=== PATIENT | male | born 1980 | race Caucasian/White ===

== ENCOUNTER 2019-02-23 05:38 | Day surgery (SDC) | payer OTHER ==
[2019-02-23] MEDS ORDERED: NEOMYC/POLYMYX/BACIT 30 GM OINT (06:53)
[2019-02-23] MEDS ORDERED: ROPIVACAINE 0.5 % 30 ML VIAL ×2 (06:53→07:23)
[2019-02-23] MEDS ORDERED: SUGAMMADEX SODIUM 200 MG/2 ML VIAL IV (07:00)
[2019-02-23] MEDS ORDERED: FENTAnyl 50 MCG/ML VIAL ×3 (07:19→09:17)
[2019-02-23] MEDS ORDERED: MIDAZOLAM 1 MG/ML 2 ML INJ (07:19)
[2019-02-23] MEDS ORDERED: CEFAZOLIN 1 GM INJ (07:19)
[2019-02-23] MEDS ORDERED: ONDANSETRON 4 MG INJ (07:19)
[2019-02-23] MEDS ORDERED: PROPOFOL 20 ML (07:19)
[2019-02-23] MEDS ORDERED: ROCURONIUM 50 MG INJ ×3 (07:19→10:01)
[2019-02-23] MEDS ORDERED: NEOSTIGMINE 3 MG/3 ML SYRINGE (07:19)
[2019-02-23] MEDS ORDERED: GLYCOPYRROLATE 0.4 MG INJ (07:19)
[2019-02-23] MEDS ORDERED: DEXAMETHASONE 4 MG/ML 5 ML INJ (07:20)
[2019-02-23] MEDS ORDERED: EPHEDrine SULFATE 50 MG/5 ML SYG IV (07:30)
[2019-02-23] MEDS ORDERED: ALBUTEROL 0.083% (NEB) 2.5 MG/3 ML AMP HHN (07:30)
[2019-02-23] MEDS ORDERED: IPRATROPIUM (NEB) 0.5 MG/2.5 ML AMP HHN (07:30)
[2019-02-23] MEDS ORDERED: TRIMETHOBENZAMIDE 100 MG/ML VIAL IM (07:30)
[2019-02-23] MEDS ORDERED: FENTAnyl 50 MCG/ML VIAL IV ×3 (07:30)
[2019-02-23] MEDS ORDERED: MEPERIDINE 25 MG INJ IV (07:30)
[2019-02-23] MEDS ORDERED: LABETALOL HCL 20MG INJ IV (07:30)
[2019-02-23] MEDS ORDERED: DIPHENHYDRAMINE 50 MG INJ IV (07:30)
[2019-02-23] MEDS ORDERED: HYDROmorphONE 1 MG/5 ML IV SYRINGE IV ×2 (07:30)
[2019-02-23] MEDS ORDERED: MIDAZOLAM 1 MG/ML 2 ML INJ IV (07:30)
[2019-02-23] MEDS ORDERED: hydrALAzine 20 MG INJ IV (07:30)
[2019-02-23] MEDS ORDERED: OXYCODONE/ACETAMINOPHEN (5/325) TAB PO ×2 (07:30)
[2019-02-23] MEDS ORDERED: THROMBIN (BOVINE) 5,000 UNIT VIAL TP (07:32)
[2019-02-23] MEDS: HEPARIN 1000 UNITS/ML 10 ML INJ (08:56)
[2019-02-23] MEDS: SODIUM CL BACTERIOSTATIC 30 ML INJ (08:56)
[2019-02-23] MEDS ORDERED: CA CHLORIDE 10% 10 ML SYRINGE (09:22)
[2019-02-23] MEDS ORDERED: KETOROLAC 30 MG INJ IV (10:00)
[2019-02-23] MEDS: CA CHLORIDE (GM) 10% 10 ML INJ (10:11)
[2019-02-23] MEDS: IOHEXOL 300MG/ML 30 ML BTL (10:12)
[2019-02-23] MEDS ORDERED: THROMBIN(HUM PLAS)/FIBRINOG/CA 5 ML VIAL TOP (11:51)
[2019-02-23] MEDS ORDERED: METOCLOPRAMIDE 10 MG INJ (12:34)
[2019-02-23] MEDS ORDERED: DEXAMETHASONE 4 MG/ML 1 ML INJ (12:34)
[2019-02-23] MEDS: ONDANSETRON 4 MG INJ IV (12:52)
[2019-02-23] MEDS: METOCLOPRAMIDE 10 MG INJ IV (12:52)
[2019-02-23] MEDS: DEXAMETHASONE 4 MG/ML 1 ML INJ IV (12:53)
[2019-02-23] MEDS: HYDROmorphONE 1 MG/5 ML IV SYRINGE IV (13:41)
[2019-02-23] MEDS: OXYCODONE/ACETAMINOPHEN (5/325) TAB PO (14:51)
== END 2019-02-23 16:25 | disposition home or self-care (01) ==
LOC: SDS 05:38
DX: M93.271 Osteochondritis dissecans, right ankle and joints of right foot (principal); M94.8X7 Other specified disorders of cartilage, ankle and foot
CPT/HCPCS: 29892; 73600; 82306